=== PATIENT | male | born 1955 | race Caucasian/White ===

== ENCOUNTER 2019-05-07 09:40 | Emergency (ER) | payer OTHER, BC ==
[~2019-05-07] VITALS: Ht 182.9 cm; Wt 102.1 kg
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
[2019-05-07 10:37] VITALS: BP 164/92
[2019-05-07] MEDS ORDERED: HYDR-3164 PO (11:07)
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
== END 2019-05-07 11:19 | disposition home or self-care (01) ==
LOC: ER 09:40
DX: S43.102A Unspecified dislocation of left acromioclavicular joint, initial encounter (principal); V49.9XXA Car occupant (driver) (passenger) injured in unspecified traffic accident, initial encounter; Y93.89 Activity, other specified; Y92.488 Other paved roadways as the place of occurrence of the external cause; Y99.8 Other external cause status
CPT/HCPCS: 73030; 99284